=== PATIENT | female | born 1945 | race Native Hawaiian/Other Pacific Islander ===

== ENCOUNTER 2017-06-02 14:03 | Emergency (ER) | payer OTHER ==
[~2017-06-02] VITALS: Ht 175.3 cm; Wt 116.1 kg
[2017-06-02 14:25] VITALS: TEMP 98
[2017-06-02] MEDS ORDERED: PAXIL40 MG PO (14:31)
[2017-06-02 14:52] LABS: SODIUM 136 mmol/L (136-145)
[2017-06-02 15:02] LABS: PLATELET COUNT 263 K/uL (152-353)
[2017-06-02 18:40] VITALS: BP 144/99
== END 2017-06-02 18:40 | disposition home or self-care (01) ==
LOC: ED 14:03
DX: I51.7 Cardiomegaly (principal); I48.91 Unspecified atrial fibrillation; M10.9 Gout, unspecified; I10 Essential (primary) hypertension; J81.1 Chronic pulmonary edema
CPT/HCPCS: 36415; 80053; 81000; 82550; 82553; 84484; 84550; 85027; 93005; 96374; 99284; J3490

== ENCOUNTER 2017-06-22 13:17 | Emergency (ER) | payer OTHER ==
[~2017-06-22] VITALS: Ht 175.3 cm; Wt 120.2 kg
[~2017-06-22 13:17] MED LIST: PAXIL40 MG PO
[2017-06-22 13:20] VITALS: TEMP 98
[2017-06-22 13:42] LABS: PLATELET COUNT 223 K/uL (152-353)
[2017-06-22 13:50] LABS: POTASSIUM 2.9 mmol/L (3.6-5.2)
[2017-06-22] MEDS ORDERED: FURO40TA93 PO (14:33)
[2017-06-22] MEDS ORDERED: OMEPRAZOLE20 M1 OR (14:34)
[2017-06-22] MEDS ORDERED: ALLO300T23 PO (14:35)
[2017-06-22] MEDS ORDERED: METO25TA4 OR (14:35)
[2017-06-22] MEDS ORDERED: DIUREX 50-162.51 TAB PO (14:35)
[2017-06-22 17:15] VITALS: BP 138/68
== END 2017-06-22 20:17 | disposition home or self-care (01) ==
LOC: ED 13:17
DX: K52.89 Other specified noninfective gastroenteritis and colitis (principal); E87.6 Hypokalemia
CPT/HCPCS: 36415; 80053; 85027; 96361; 96374; 99284; J2405

== ENCOUNTER 2020-06-10 12:57 | Inpatient (IN) | payer OTHER ==
[~2020-06-10] VITALS: Ht 160 cm; Wt 108.7 kg
[~2020-06-10 12:57] MED LIST changes: +ALLO300T23 PO; +DIUREX 50-162.51 TAB PO; +FURO40TA93 PO; +METO25TA4 OR; +OMEPRAZOLE20 M1 OR
[2020-06-10 13:14] VITALS: BP 182/83; TEMP 100.5
[2020-06-10 14:13] LABS: PLATELET COUNT 202 K/uL (152-353)
[2020-06-10 14:21] LABS: POTASSIUM 3.8 mmol/L (3.6-5.2)
[2020-06-10 18:02] VITALS: BP 176/91; TEMP 101.5; BMI 25.6
[2020-06-10 20:00] VITALS: BP 184/73; TEMP 101.9
[2020-06-11] VITALS: BP 145/66; TEMP 99.2
[2020-06-11 04:00] VITALS: BP 126/74; TEMP 98.7
[2020-06-11 05:07] LABS: PLATELET COUNT 153 K/uL (152-353)
[2020-06-11 05:42] LABS: POTASSIUM 3.2 mmol/L (3.6-5.2)
[2020-06-11 12:00] VITALS: BP 128/64; TEMP 99.3
[2020-06-11] MEDS ORDERED: LOSA50TA PO (12:18)
[2020-06-11] MEDS ORDERED: FURO40TA93 PO (12:20)
[2020-06-11] MEDS ORDERED: DIGITEK0.125 MG PO (12:22)
[2020-06-11] MEDS ORDERED: METO50TA27 PO (12:22)
[2020-06-11 16:00] VITALS: BP 141/61; TEMP 99.1
[2020-06-11 20:00] VITALS: BP 145/80; TEMP 102.9
[2020-06-12] VITALS (7 sets, daily range): BP systolic 102–121; BP diastolic 50–65; TEMP 97.5–99.1
[2020-06-12 05:37] LABS: PLATELET COUNT 150 K/uL (152-353)
[2020-06-12 06:00] LABS: POTASSIUM 3.8 mmol/L (3.6-5.2)
[2020-06-13 03:41] VITALS: BP 100/53; TEMP 97.3
[2020-06-13 06:01] LABS: PLATELET COUNT 161 K/uL (152-353)
[2020-06-13 06:09] LABS: POTASSIUM 4.2 mmol/L (3.6-5.2)
[2020-06-13 08:00] VITALS: BP 114/74; TEMP 97.6
[2020-06-13 12:00] VITALS: BP 100/56; TEMP 97.4
[2020-06-13 16:00] VITALS: BP 116/58
[2020-06-13 20:00] VITALS: BP 135/75; TEMP 98.1
[2020-06-14] VITALS (7 sets, daily range): BP systolic 112–145; BP diastolic 55–77; TEMP 97.6–98.8; Ht 160 cm; Wt 108.7 kg
[2020-06-14 06:38] LABS: PLATELET COUNT 158 K/uL (152-353)
[2020-06-14 06:45] LABS: POTASSIUM 4.2 mmol/L (3.6-5.2)
[2020-06-15] VITALS: BP 115/50; TEMP 97.9
[2020-06-15 04:00] VITALS: BP 98/52; TEMP 97.6
[2020-06-15 05:17] LABS: POTASSIUM 4.3 mmol/L (3.6-5.2)
[2020-06-15 05:20] LABS: PLATELET COUNT 156 K/uL (152-353)
[2020-06-15 08:00] VITALS: BP 128/70; TEMP 97.4
[2020-06-15 12:00] VITALS: BP 140/66; TEMP 97.6
[2020-06-15 16:00] VITALS: BP 122/77; TEMP 97.4
[2020-06-15 20:00] VITALS: BP 133/56; TEMP 97.8
[2020-06-16 00:05] VITALS: BP 128/63; TEMP 97.8
[2020-06-16 04:24] VITALS: BP 145/68; TEMP 98.1
[2020-06-16 04:47] LABS: PLATELET COUNT 173 K/uL (152-353)
[2020-06-16 04:50] LABS: POTASSIUM 4.7 mmol/L (3.6-5.2)
[2020-06-16 08:00] VITALS: BP 180/81; TEMP 98.3
[2020-06-16 12:00] VITALS: BP 152/68; TEMP 98
[2020-06-16 16:00] VITALS: BP 136/58
[2020-06-16 20:00] VITALS: BP 142/73; TEMP 98.5
[2020-06-17 00:03] VITALS: BP 111/39; TEMP 98.4
[2020-06-17 04:00] VITALS: BP 117/53; TEMP 98.7
[2020-06-17 05:50] LABS: POTASSIUM 4.9 mmol/L (3.6-5.2)
[2020-06-17 05:56] LABS: PLATELET COUNT 204 K/uL (152-353)
[2020-06-17 08:00] VITALS: BP 150/76; TEMP 97.8
[2020-06-17 12:00] VITALS: BP 144/78; TEMP 97
[2020-06-17 16:00] VITALS: BP 155/71; TEMP 97.8
== END 2020-06-17 17:15 | disposition home or self-care (01) | DRG 689 ==
LOC: ED 12:57 → MED/SURG 15:49
PROVIDERS: Internal Medicine; Internal Medicine Endocrinology, Diabetes & Metabolism; ADMIT Emergency Medicine
DX: N30.00 Acute cystitis without hematuria (principal); A41.89 Other specified sepsis; I48.20 Chronic atrial fibrillation, unspecified; B96.20 Unspecified Escherichia coli [E. coli] as the cause of diseases classified elsewhere; K21.9 Gastro-esophageal reflux disease without esophagitis; I51.7 Cardiomegaly; E66.8 Other obesity; E87.6 Hypokalemia; M10.9 Gout, unspecified; F32.89 Other specified depressive episodes; E83.51 Hypocalcemia; I11.0 Hypertensive heart disease with heart failure; I50.9 Heart failure, unspecified
CPT/HCPCS: 36415; 80048; 80053; 80162; 81000; 83605; 83735; 84443; 85027; 85379; 87040; 87077; 87086; 87088; 87186; 87205; 87635; 94760; 96360; 96361; 96365; 99284; J0456; J0744; J1650; J1956; J2405; U00003

== ENCOUNTER 2020-10-13 10:53 | Emergency (ER) | payer OTHER ==
[~2020-10-13] VITALS: Ht 175.3 cm; Wt 108.4 kg
[~2020-10-13 10:53] MED LIST changes: +DIGITEK0.125 MG PO; +LOSA50TA PO; +METO50TA27 PO
[2020-10-13 13:25] VITALS: BP 170/91; TEMP 97.9
== END 2020-10-13 13:25 | disposition home or self-care (01) ==
LOC: ED 10:53
DX: I10 Essential (primary) hypertension (principal)
CPT/HCPCS: 99284

== ENCOUNTER 2021-09-11 11:54 | Emergency (ER) | payer OTHER ==
[~2021-09-11] VITALS: Ht 175.3 cm; Wt 102.1 kg
[2021-09-11 12:59] LABS: PLATELET COUNT 227 K/uL (152-353)
[2021-09-11 13:19] LABS: POTASSIUM 3.6 mmol/L (3.6-5.2)
[2021-09-11 14:20] VITALS: BP 157/86; TEMP 98.7
== END 2021-09-11 14:20 | disposition home or self-care (01) ==
LOC: ED 11:54
PROVIDERS: Emergency Medicine Emergency Medical Services
DX: J20.9 Acute bronchitis, unspecified (principal)
CPT/HCPCS: 80053; 81000; 83735; 84484; 85027; 87040; 93005; 96365; 99284; J1956

== ENCOUNTER 2022-03-20 17:03 | Outpatient (CLI) | payer OTHER ==
[2022-03-20 17:21] LABS: PLATELET COUNT 193 K/uL (152-353)
[2022-03-20 17:35] LABS: POTASSIUM 3.4 mmol/L (3.6-5.2)
== END 2022-03-20 21:45 | disposition home or self-care (01) ==
LOC: LABW 17:03
PROVIDERS: ATTEND Podiatrist
DX: E11.40 Type 2 diabetes mellitus with diabetic neuropathy, unspecified (principal); I10 Essential (primary) hypertension; M10.071 Idiopathic gout, right ankle and foot; M10.072 Idiopathic gout, left ankle and foot
CPT/HCPCS: 36415; 80053; 84550; 85027; 86140

== ENCOUNTER 2022-04-12 22:19 | Emergency (ER) | payer OTHER ==
[~2022-04-12] VITALS: Ht 175.3 cm; Wt 97.5 kg
[2022-04-12 23:08] LABS: PLATELET COUNT 209 K/uL (152-353)
[2022-04-12 23:14] LABS: POTASSIUM 3.6 mmol/L (3.6-5.2)
[2022-04-12 23:24] LABS: PARTIAL THROMBOPLASTIN TIME 27.9 SECONDS (24.5-33.6)
[2022-04-13 00:15] VITALS: BP 149/56; TEMP 98.1
== END 2022-04-13 00:15 | disposition home or self-care (01) ==
LOC: ED 22:19
PROVIDERS: Hospitalist
DX: I50.9 Heart failure, unspecified (principal); I48.20 Chronic atrial fibrillation, unspecified
CPT/HCPCS: 36415; 80053; 80162; 82550; 83880; 84484; 85027; 85610; 85730; 93005; 96374; 99284; J1940

== ENCOUNTER 2022-04-17 15:43 | Outpatient (CLI) | payer OTHER | END 2022-04-17 19:16 | disposition home or self-care (01) | LOC: LABW 15:43 | PROVIDERS: ATTEND Podiatrist | DX: M10.071 Idiopathic gout, right ankle and foot (principal); M10.072 Idiopathic gout, left ankle and foot | CPT/HCPCS: 36415; 84550 ==

== ENCOUNTER 2022-06-05 10:25 | Outpatient (CLI) | payer OTHER ==
[2022-06-05 10:49] LABS: POTASSIUM 3.7 mmol/L (3.6-5.2)
== END 2022-06-05 19:20 | disposition home or self-care (01) ==
LOC: LABW 10:25
PROVIDERS: ATTEND Internal Medicine Cardiovascular Disease
DX: Z79.899 Other long term (current) drug therapy (principal); R06.09 Other forms of dyspnea
CPT/HCPCS: 36415; 80048; 83880

== ENCOUNTER 2022-06-24 17:53 | Outpatient (CLI) | payer OTHER | END 2022-06-24 19:03 | disposition home or self-care (01) | LOC: LABW 17:53 | PROVIDERS: ATTEND Podiatrist | DX: M10.071 Idiopathic gout, right ankle and foot (principal); M10.072 Idiopathic gout, left ankle and foot | CPT/HCPCS: 36415; 84550 ==

== ENCOUNTER 2022-07-02 08:39 | Outpatient (CLI) | payer OTHER | END 2022-07-02 21:33 | disposition home or self-care (01) | LOC: RESP 08:39 | PROVIDERS: ATTEND Internal Medicine Cardiovascular Disease | DX: I10 Essential (primary) hypertension (principal) ==

== ENCOUNTER 2022-08-19 12:47 | Emergency (ER) | payer OTHER ==
[~2022-08-19] VITALS: Ht 175.3 cm; Wt 97.5 kg
[2022-08-19 12:50] VITALS: TEMP 99.1
[2022-08-19 13:40] VITALS: BP 153/69
== END 2022-08-19 13:43 | disposition home or self-care (01) ==
LOC: ED 12:47
DX: S20.211A Contusion of right front wall of thorax, initial encounter (principal); W01.0XXA Fall on same level from slipping, tripping and stumbling without subsequent striking against object, initial encounter; Y92.89 Other specified places as the place of occurrence of the external cause
CPT/HCPCS: 99283

== ENCOUNTER 2022-08-29 09:11 | Outpatient (CLI) | payer OTHER | END 2022-08-29 19:38 | disposition home or self-care (01) | LOC: RAD 09:11 | PROVIDERS: ATTEND Internal Medicine Endocrinology, Diabetes & Metabolism | DX: J18.9 Pneumonia, unspecified organism (principal) ==

== ENCOUNTER 2022-10-04 16:13 | Outpatient (CLI) | payer OTHER | END 2022-10-04 19:00 | disposition home or self-care (01) | LOC: LABW 16:13 | PROVIDERS: ATTEND Podiatrist | DX: M10.071 Idiopathic gout, right ankle and foot (principal); M10.072 Idiopathic gout, left ankle and foot | CPT/HCPCS: 36415; 84550 ==

== ENCOUNTER 2022-10-06 12:35 | Inpatient (IN) | payer OTHER ==
[~2022-10-06] VITALS: Ht 175.3 cm; Wt 102.5 kg
[2022-10-06 12:38] VITALS: BP 160/42; TEMP 99.1
[2022-10-06 13:06] LABS: PLATELET COUNT 201 K/uL (152-353)
[2022-10-06 13:11] LABS: POTASSIUM 3.4 mmol/L (3.6-5.2)
[2022-10-06 13:25] LABS: PARTIAL THROMBOPLASTIN TIME 30.3 SECONDS (24.5-33.6)
[2022-10-06 13:30] VITALS: BP 126/34
[2022-10-06 16:19] VITALS: BP 114/66; TEMP 97.6; Ht 175.3 cm; Wt 102.5 kg
[2022-10-06 16:38] VITALS: BP 114/66; TEMP 97.6
[2022-10-06] MEDS ORDERED: DIGO0.2549 PO (16:56)
[2022-10-06] MEDS ORDERED: COZAAR25 MG PO (16:58)
[2022-10-06] MEDS ORDERED: SPIRONOLACT25 MG PO (16:59)
[2022-10-06] MEDS ORDERED: VITAMIN D50000 UNIT PO (17:09)
[2022-10-06 20:00] VITALS: BP 108/43; TEMP 97.8
[2022-10-07] VITALS (7 sets, daily range): BP systolic 98–120; BP diastolic 31–52; TEMP 97.3–98.7
[2022-10-07 10:03] LABS: PLATELET COUNT 169 K/uL (152-353)
[2022-10-07 10:07] LABS: POTASSIUM 3.2 mmol/L (3.6-5.2)
[2022-10-08 04:00] VITALS: BP 97/40; TEMP 97.6
[2022-10-08 05:25] LABS: PLATELET COUNT 173 K/uL (152-353)
[2022-10-08 05:38] LABS: POTASSIUM 3.7 mmol/L (3.6-5.2)
[2022-10-08 08:49] VITALS: BP 117/53; TEMP 98
[2022-10-08 12:30] VITALS: BP 109/54; TEMP 98.6
[2022-10-08] MEDS ORDERED: DIGITEK0.125 MG PO (14:45)
[2022-10-08] MEDS ORDERED: ASA LOW DOSE81 MG PO (14:47)
== END 2022-10-08 15:38 | disposition home or self-care (01) | DRG 309 ==
LOC: ED 12:35 → MED/SURG 14:35
PROVIDERS: ADMIT Family Medicine; ATTEND Internal Medicine
DX: I48.91 Unspecified atrial fibrillation (principal); I27.0 Primary pulmonary hypertension; N39.0 Urinary tract infection, site not specified; E87.6 Hypokalemia; M10.9 Gout, unspecified; I50.9 Heart failure, unspecified; R07.89 Other chest pain; B96.20 Unspecified Escherichia coli [E. coli] as the cause of diseases classified elsewhere
CPT/HCPCS: 36415; 80048; 80053; 80162; 80307; 81000; 82550; 83880; 84484; 85027; 85610; 85730; 87077; 87086; 87088; 87186; 87635; 93005; 94760; 96365; 96372; 96374; 96375; 99283; J0696; J1650; J2270; J2405; U0003

== ENCOUNTER 2023-02-12 13:01 | Outpatient (CLI) | payer OTHER ==
[~2023-02-12 13:01] MED LIST changes: +ASA LOW DOSE81 MG PO; +COZAAR25 MG PO; +DIGO0.2549 PO; +SPIRONOLACT25 MG PO; +VITAMIN D50000 UNIT PO
== END 2023-02-12 19:27 | disposition home or self-care (01) ==
LOC: RESP 13:01
PROVIDERS: ATTEND Internal Medicine Cardiovascular Disease
DX: I27.20 Pulmonary hypertension, unspecified (principal)

== ENCOUNTER 2023-05-05 19:12 | Inpatient (IN) | payer OTHER ==
[~2023-05-05] VITALS: Ht 175.3 cm; Wt 70.3 kg
[~2023-05-05 19:12] MED LIST changes: +CRESTOR20 MG PO; +DIGO0.1230 PO; +METF500T PO
[2023-05-05 19:15] VITALS: BP 143/57; TEMP 98.7
[2023-05-05 19:50] LABS: PLATELET COUNT 204 K/uL (152-353)
[2023-05-05 19:53] LABS: POTASSIUM 3.3 mmol/L (3.6-5.2)
[2023-05-05 19:54] LABS: PARTIAL THROMBOPLASTIN TIME 37.6 SECONDS (23.9-36.7)
[2023-05-06 00:24] VITALS: BP 11/61; TEMP 98; Ht 175.3 cm; Wt 70.3 kg
[2023-05-06 04:00] VITALS: BP 126/63; TEMP 98.4
[2023-05-06 05:50] LABS: PLATELET COUNT 189 K/uL (152-353)
[2023-05-06 05:55] LABS: POTASSIUM 3.4 mmol/L (3.6-5.2)
[2023-05-06 08:07] VITALS: BP 112/67; TEMP 97.8
[2023-05-06] MEDS ORDERED: TRIA0.1C19 TOP (11:14)
[2023-05-06] MEDS ORDERED: LIPITOR40 MG PO (11:15)
[2023-05-06] MEDS ORDERED: CLOP75TA2 PO (11:15)
[2023-05-06] MEDS ORDERED: PROTONIX20 MG PO (11:21)
[2023-05-06] MEDS ORDERED: TYLENOL 8 HOUR650 MG PO (11:23)
[2023-05-06 12:00] VITALS: BP 129/61; TEMP 98.2
[2023-05-06 16:00] VITALS: BP 115/69; TEMP 97.7
[2023-05-06 20:00] VITALS: BP 123/61; TEMP 99.5
[2023-05-07] VITALS: BP 132/75; TEMP 99.3
[2023-05-07 04:00] VITALS: BP 112/62; TEMP 98.8
[2023-05-07 08:00] VITALS: BP 121/63; TEMP 98.5
[2023-05-07 12:00] VITALS: BP 115/60; TEMP 97.8
[2023-05-07 16:00] VITALS: BP 131/49; TEMP 98.1
[2023-05-07 20:00] VITALS: BP 118/53; TEMP 98.8
[2023-05-08] VITALS: BP 133/62; TEMP 98.8
[2023-05-08 04:00] VITALS: BP 127/59; TEMP 97.9
[2023-05-08 08:00] VITALS: BP 130/63; TEMP 98.3
[2023-05-08 12:00] VITALS: BP 126/69; TEMP 97.9
[2023-05-08 16:00] VITALS: BP 137/67; TEMP 97.7
[2023-05-08 20:00] VITALS: BP 149/62; TEMP 97.8
[2023-05-09] VITALS: BP 131/68; TEMP 97.8
[2023-05-09 04:00] VITALS: BP 134/62; TEMP 97.9
[2023-05-09 05:27] LABS: PLATELET COUNT 175 K/uL (152-353)
[2023-05-09 05:39] LABS: POTASSIUM 3.9 mmol/L (3.6-5.2)
[2023-05-09 08:00] VITALS: BP 128/65; TEMP 97.8
[2023-05-09] MEDS ORDERED: PRED20TA27 PO (10:22)
[2023-05-09] MEDS ORDERED: ALBU90AE13 INH (10:24)
[2023-05-09] MEDS ORDERED: CEFD300C2 PO (10:25)
[2023-05-09 12:00] VITALS: BP 142/68; TEMP 98.2
[2023-05-09 16:00] VITALS: BP 118/55; TEMP 99
== END 2023-05-09 18:16 | disposition home or self-care (01) | DRG 292 ==
LOC: ED 19:12 → MED/SURG 23:04
PROVIDERS: Family Medicine; Internal Medicine; ADMIT Internal Medicine Endocrinology, Diabetes & Metabolism; ATTEND Internal Medicine Endocrinology, Diabetes & Metabolism
DX: I11.0 Hypertensive heart disease with heart failure (principal); J96.10 Chronic respiratory failure, unspecified whether with hypoxia or hypercapnia; I50.9 Heart failure, unspecified; Z99.81 Dependence on supplemental oxygen; R07.89 Other chest pain; I25.10 Atherosclerotic heart disease of native coronary artery without angina pectoris; E11.9 Type 2 diabetes mellitus without complications; K21.9 Gastro-esophageal reflux disease without esophagitis; F41.8 Other specified anxiety disorders; R60.0 Localized edema; Z79.01 Long term (current) use of anticoagulants
CPT/HCPCS: 36415; 80048; 80053; 82550; 82948; 83735; 83880; 84484; 85027; 85610; 85730; 93005; 96361; 96372; 96374; 96375; 96376; 99284; J1200; J1650; J1885; J1940; J2270; J2405